=== PATIENT | female | born 1925 | race Caucasian/White ===

== ENCOUNTER 2017-04-28 15:05 | Outpatient (CLI) | payer MEDICARE, OTHER ==
[~2017-04-28 15:05] MED LIST: AMLO10TA PO; ASPI-611 PO; ATOR40TA72 PO; BUPR150T6 PO; CLON0.1T20 PO; LOSA50TA37 PO; ZOLP5TAB2 PO
[2017-04-28 15:12] VITALS: BP 120/63
== END 2017-04-28 15:54 | disposition home or self-care (01) ==
LOC: ORTHO 15:05
PROVIDERS: ATTEND Nurse Practitioner Family
DX: S62.34 Nondisplaced fracture of base of other metacarpal bone (principal); M19.032 Primary osteoarthritis, left wrist; M85.842 Other specified disorders of bone density and structure, left hand; E11.9 Type 2 diabetes mellitus without complications; E78.00 Pure hypercholesterolemia, unspecified; I10 Essential (primary) hypertension; Z86.73 Personal history of transient ischemic attack (TIA), and cerebral infarction without residual deficits; X58.XXXD Exposure to other specified factors, subsequent encounter
CPT/HCPCS: 29260; 73130

== ENCOUNTER 2017-05-27 15:02 | Outpatient (CLI) | payer MEDICARE, OTHER ==
[2017-05-27 15:11] VITALS: BP 121/65
== END 2017-05-27 15:30 | disposition home or self-care (01) ==
LOC: ORTHO 15:02
PROVIDERS: ATTEND Nurse Practitioner Family
DX: S62.347D Nondisplaced fracture of base of fifth metacarpal bone, left hand, subsequent encounter for fracture with routine healing (principal); M19.042 Primary osteoarthritis, left hand; M19.032 Primary osteoarthritis, left wrist; M85.842 Other specified disorders of bone density and structure, left hand; E11.9 Type 2 diabetes mellitus without complications; E78.00 Pure hypercholesterolemia, unspecified; I10 Essential (primary) hypertension; Z86.73 Personal history of transient ischemic attack (TIA), and cerebral infarction without residual deficits; X58.XXXD Exposure to other specified factors, subsequent encounter
CPT/HCPCS: 73130